=== PATIENT | male | born 1950 | race Caucasian/White ===

== ENCOUNTER 2023-05-16 08:12 | Inpatient (IN) | payer MEDICARE, OTHER, SELFPAY ==
[2023-05-16] VITALS (14 sets, daily range): BP systolic 96–154; BP diastolic 44–87; PULSE 71–109; RESP 14–22; TEMP 36.7–37.3; O2SAT 92–98; BMI 24.4
--- NOTE | 2023-05-16 09:02 | CT_ITS ---
WS: [id number] CT PELVIS WITH CONTRAST HISTORY: perirectal abscess/pilonidal cyst TECHNIQUE: Contiguous imaging is performed of the pelvis without contrast. Coronal and sagittal refor mats are reviewed. All CT scans at [facility] use at least one of these dose optimization ross hniques: automated exposure control; mA and/or kV adjustment per patient size (includes targeted exam s where dose is matched to clinical indication); or iterative reconstruction. DLP: 448.07 mGy.cm COMPARISON: None available. Contrast: Omnipaque 350 100 mL IV. Soft tissue inflammatory process centered along the perineum and the gluteal cleft. Soft tissue thick ening begins posterior to the sacrum and extends to the perineum. There is a developing but ill-defin ed collection measuring 3.2 x 3.4 cm and extending over a length of 6.0 cm along the midline perineum and gluteal cleft. There is additional induration and stranding within the soft tissues bilaterally over the gluteal muscles. No foreign body. The inflammatory changes extend to the rectum and anus. Mild atherosclerotic changes in the distal aorta. Small anterior abdominal wall hernia contains fat o nly. Urinary bladder is distended. No free fluid in the pelvis. IMPRESSION: 1. Phlegmonous changes with early formation of an abscess along the perineum and gluteal cleft measur es 3.2 x 3.4 cm and extends over a length of 6.0 cm. Adjacent soft tissue induration and thickening. 2. Phlegmonous changes extend to the posterior anorectal region.
--- NOTE | 2023-05-16 09:03 | W.ED.GENADLT ---
HPI - General Adult General: Chief complaint: GI Bleed Stated complaint: previous hemeroid treatment, complications Time Seen by Provider: 05/16/23 08:14 Source: patient Mode of arrival: ambulatory History of Present Illness: 73-year-old male presents emergency room with perineal perirectal pain. He states it began about a week ago after a difficult stool. He was seen in [place] presumably treated for hemorrhoids given suppositories and tramadol. He has noticed increased pain to the point where it nearly impossible to sit. He is also noticed difficulty with starting urination. He has noticed a little bit of blood when he wipes after bowel movement. He has noticed some swelling in the perirectal area as well. Onset (ago): hour(s) Severity: mild Relieving factors: none Exacerbating factors: none Associated symptoms: Deny chest pain, confusion, cough, diaphoresis, decreased appetite, dyspnea, fevers/chills, headache(s), malaise, nausea, rash, palpitations, seizures, short of breath, syncope, vomiting or weakness Treatments prior to arrival: none Review of Systems Const: Denies: fever(s), chills, fatigue, malaise or diaphoresis Card: Denies: chest pain, palpitations or syncope Resp: Denies: dyspnea GI: Reports: pain on defecation, rectal pain and hematochezia; Denies: abdominal pain, nausea or vomiting : Denies: flank pain, dysuria, urinary frequency or urinary urgency Skin/Breast: Reports: erythema; Denies: rash, pruritus or skin swelling Neuro: Denies: headache(s) or confusion Physical Exam Const: COMMON NORMALS: no acute distress GENERAL APPEARANCE: cooperative and comfortable ORIENTATION/CONSCIOUSNESS: Yes awake, Yes oriented to person, Yes oriented to place and Yes oriented to time HENMT: COMMON NORMALS: normocephalic, atraumatic and hearing grossly normal bilaterally HEAD & SCALP: normocephalic and atraumatic Resp: COMMON NORMALS: normal respiratory effort, No retractions, No use of accessory muscles and clear to auscultation bilaterally AUSCULTATION: clear to auscultation bilaterally Cardio: COMMON NORMALS: regular rate, regular rhythm and No murmurs present (Cardio) RATE: regular rate RHYTHM: regular rhythm GI: COMMON NORMALS: Soft to palpation and No hepatosplenomegaly present AUSCULTATION: Yes normoactive bowel sounds PALPATION: Yes Soft to palpation, No Tenderness to palpation present (GI), No Guarding due to palpation present (GI) and Yes No hepatosplenomegaly present RECTAL EXAM: Yes Visual inspection abnormal OTHER: Perirectal swelling with fluctuant area along the gluteal cleft that has some pointing no active drainage consistent with expanding perirectal abscess : COMMON NORMALS: Yes no CVA tenderness BLADDER/KIDNEY EXAM: Yes no CVA tenderness Back/Pelvis: COMMON NORMALS: no CVA tenderness Extremity: COMMON NORMALS: normal to inspection, capillary refill normal, no clubbing, cyanosis or edema, no calf tenderness and no pedal edema Neuro: SENSORIUM/ORIENTATION: Yes oriented to person, Yes oriented to place and Yes oriented to time Skin: COMMON NORMALS: no rashes or lesions noted GENERAL SKIN EXAM: no rashes or lesions noted Course Vital Signs: Vital signs: Vital Signs Temperature 98.5 F 05/19/23 12:22 Pulse Rate 84 05/19/23 12:22 Respiratory Rate 17 05/19/23 12:22 Blood Pressure 132/70 05/19/23 12:22 Pulse Oximetry 97 05/19/23 12:22 Oxygen Delivery Me thod Room Air 05/19/23 03:40 Oxygen Flow Rate 1.5 05/17/23 19:25 MDM - General Adult Medical Decision Making Perirectal abscess. Discussed Dr. Callahan antibiotics initiated cultures done Dr. Callahan is taking patient to the OR. Medical Records I reviewed the patient's medical records. Lab Data I reviewed the patient's lab results. 05/19/23 04:40 05/19/23 04:40 Laboratory Results WBC 13.52 10^3/uL (3.29-11.43) H 05/17/23 05:56 RBC 2.59 10^6/uL (3.85-5.65) L 05/17/23 05:56 Hgb 7.60 g/dL (11.27-16.99) L 05/17/23 05:56 Hct 24.8 % (37-53) L 05/17/23 05:56 MCV 95.8 fl (82-101) 05/17/23 05:56 MCH 29.3 pg (27-33) 05/17/23 05:56 MCHC 30.6 g/dL (30-55) 05/17/23 05:56 RDW 26.6 % (12.1-15.1) H 05/17/23 05:56 Plt Count 402 10^3/cmm (157-399) H 05/17/23 05:56 MPV 10.7 fL (7.4-10.4) H 05/17/23 05:56 Neut % (Auto) 85.5 % 05/17/23 05:56 Lymph % (Auto) 5.9 % 05/17/23 05:56 [place] % (Auto) 6.5 % 05/17/23 05:56 Eos % (Auto) 0.2 % 05/17/23 05:56 Baso % (Auto) 0.2 % 05/17/23 05:56 Neut # (Auto) 11.55 10^3/uL (1.8-7.7) H 05/17/23 05:56 Lymph # (Auto) 0.8 10^3/uL (0.8-4.8) 05/17/23 05:56 [place] # (Auto) 0.9 10^3/uL (0.2-0.9) 05/17/23 05:56 Eos # (Auto) 0.0 10^3/uL (0.0-0.8) 05/17/23 05:56 Baso # (Auto) 0.0 10^3/uL (0.0-0.1) 05/17/23 05:56 Nucleated RBC % (auto) 0 % 05/17/23 05:56 Nucleated RBCs # 0.0 /100WBC 05/17/23 05:56 Sodium 136 mmol/L (136-145) 05/17/23 05:56 Potassium 4.6 mmol/L (3.5-5.1) 05/17/23 05:56 Chloride 102 mmol/L (98-107) 05/17/23 05:56 Carbon Dioxide 27 mmol/L (22-29) 05/17/23 05:56 Anion Gap 11.6 (5-19) 05/17/23 05:56 BUN 13 mg/dL (8-23) 05/17/23 05:56 Creatinine 1.0 mg/dL (0.7-1.2) 05/17/23 05:56 GFR Calculation Not Reportable 05/17/23 05:56 Glucose 125 mg/dL (65-115) H 05/17/23 05:56 Calculated Osmolality 284 mOsm/kg (285-295) L 05/17/23 05:56 Calcium 8.0 mg/dL (8.5-10.5) L 05/17/23 05:56 Total Bilirubin 1.3 mg/dL (0.15-1.2) H 05/16/23 09:28 AST 14 U/L (0-40) 05/16/23 09:28 ALT 21 U/L (0-41) 05/16/23 09:28 Alkaline Phosphatase 76 U/L (40-130) 05/16/23 09:28 Total Protein 6.0 g/dL (6.6-8.7) L 05/16/23 09:28 Albumin 3.9 g/dL (3.5-5.2) 05/16/23 09:28 Globulin 2.1 g/dL (1.3-4.6) 05/16/23 09:28 Urine Color Yellow (Yellow) 05/16/23 10:09 Urine Appearance Clear (CLEAR) 05/16/23 10:09 Urine pH 8 (5-7) H 05/16/23 10:09 Ur Specific [place] 1.010 (1.005-1.030) 05/16/23 10:09 Urine Protein Neg (Negative) 05/16/23 10:09 Urine Glucose (UA) Norm (Normal) 05/16/23 10:09 Urine Ketones Negative (Negative) 05/16/23 10:09 Urine Blood Neg (Negative) 05/16/23 10:09 Urine Nitrate Negative (Negative) 05/16/23 10:09 Urine Bilirubin Neg (Negative) 05/16/23 10:09 Prot Sulfosalicylic Acd Negative (Negative) 05/16/23 10:09 Urine Urobilinogen Norm mg/dL (Negative) 05/16/23 10:09 Ur Leukocyte Esterase Negative (Negative) 05/16/23 10:09 Discharge Plan Discharge Patient Disposition: Admitted As Inpatient Admit Provider: Carson Callahan Clinical Impression: Abscess, perirectal Condition: Stable Discharge Diet: Usual diet Discharge Activity: Resume usual activity 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
[2023-05-16] MEDS: sodium chloride 0.9% 1,000 ML 999 ML IV (09:31)
[2023-05-16 09:45] LABS: Basophils % 0.1 %; Eosinophils % 0.1 %; Hematocrit 25.6 % (37-53); Lymphocytes # 0.8 10^3/uL (0.8-4.8); Lymphocytes % 5.4 %; Mean Corpuscular HGB Conc 31.3 g/dL (30-55); Mean Corpuscular Hemoglobin 30.1 pg (27-33); Mean Corpuscular Volume 96.2 fl (82-101); Mean Platelet Volume 10.9 fL (7.4-10.4); Monocytes % 6.5 %; Neutrophils # 13.47 10^3/uL (1.8-7.7); Neutrophils % 86.9 %; Nucleated Red Blood Cells % 0.1 %; Platelet Count 449 10^3/cmm (157-399); Red Blood Count 2.66 10^6/uL (3.85-5.65); Red Cell Distribution Width 26.9 % (12.1-15.1)
[2023-05-16 10:13] LABS: Add Urine Microscopic? NO; Charge for UA Resulting for Rev
[2023-05-16 10:18] LABS: Alanine Aminotransferase 21 U/L (0-41); Albumin Level 3.9 g/dL (3.5-5.2); Alkaline Phosphatase 76 U/L (40-130); Aspartate Amino Transferase 14 U/L (0-40); Blood Urea Nitrogen 10 mg/dL (8-23); Calcium 8.5 mg/dL (8.5-10.5); Carbon Dioxide 28 mmol/L (22-29); Chloride 100 mmol/L (98-107); Globulin 2.1 g/dL (1.3-4.6); Glucose 131 mg/dL (65-115); Osmolality Calculated 283 mOsm/kg (285-295); Sodium 136 mmol/L (136-145); Total Bilirubin 1.3 mg/dL (0.15-1.2)
[2023-05-16 10:34] LABS: Bilirubin Urine Neg (Negative); Blood Urine Neg (Negative); Glucose Urine UA Norm (Normal); Ketones Urine Negative (Negative); Leukocyte Esterase Urine Negative (Negative); Nitrate Urine Negative (Negative); Protein Urine Neg (Negative); Sulfosalicylic Acid Urine Negative (Negative); Urine Appearance Clear (CLEAR); Urine Color Yellow (Yellow); Urobilinogen Urine Norm (Negative); pH Urine 8 (5-7)
[2023-05-16] MEDS: iohexol 350 mg/mL 500 mL Btl (per mL) IV (11:08)
--- NOTE | 2023-05-16 12:35 | P.HP_ITS ---
Providers/Chief Complaint Admitting Physician: Dr. Callahan Chief Complaint: previous hemeroid treatment, complications History of Present Illness Moiz José is a 73 year old male who presents for evaluation of possible perirectal abscess. Per patient report he started to be feeling of fullness and pain last week, on Sunday he presented to the outside physician, he was treated for hemorrhoids, since then swelling and pain has worsened, he also has noted some redness around the perianal region. Therefore considered to present to our emergency department. In our emergency department the white count was noted to be elevated, in addition to that CT scan of the pelvis was done which show evidence of a possible perirectal abscess measuring up to 6 cm. I was asked to evaluate him for this finding. Review of Systems Narrative: 10 point review of systems done and negative otherwise noted in HPI Medications/Allergies Home Medications Medication Instructions Recorded Confirmed Last Taken Type Lactobacillus acidophilus 2,000 mmu cells PO DAILY 05/16/23 05/16/23 05/16/23 History (Acidophilus capsule) amitriptyline 10 mg tablet 10 mg PO BEDTIME 05/16/23 05/16/23 05/15/23 History cholecalciferol (vitamin D3) 50 50 mcg PO DAILY 05/16/23 05/16/23 05/16/23 History mcg (2,000 unit) capsule (Vitamin D3) fish, borage, flaxseed oils-omega 1 cap PO DAILY 05/16/23 05/16/23 05/16/23 History 3,6,9 comb no.1 1,200 mg capsule ([employer] 3-6-9) hydrocortisone acetate 25 mg 25 mg [place] BID 05/16/23 05/16/23 05/16/23 History rectal suppository (Anucort-HC) [id number] 150 mcg-vit K1 1 tab PO DAILY 05/16/23 05/16/23 05/16/23 History 30 mcg-lycop 300 mcg-lutein tablet (Centrum Men 50 Plus Minis) tamsulosin 0.4 mg capsule 0.4 mg PO DAILY 05/16/23 05/16/23 05/16/23 History tramadol 50 mg tablet 50 mg PO Q6H PRN Pain 05/16/23 05/16/23 Unknown History vitamin B complex 1 tab PO DAILY 05/16/23 05/16/23 05/16/23 History Allergies Allergy/AdvReac Type Severity Reaction Status Date / Time No Known Allergies Allergy Verified 05/16/23 08:59 Vitals/I&O/Wt Last Vital Signs Temp 98.7 F 05/16/23 08:53 Pulse 82 05/16/23 08:53 Resp 16 05/16/23 08:53 BP 134/44 05/16/23 08:53 Pulse Ox 96 05/16/23 08:53 O2 Del Method Room Air 05/16/23 08:53 Weight last 48 hrs Weight 180 lb Physical Exam Narrative: General : Patient is well developed , no acute distress, oriented x3 Head : Normal cephalic, a-traumatic. Nose : Mucous membranes are without erythema. Lungs : Equal chest rise bilaterally, no use of accessory muscles, trachea is midline. CV : Rate and rhythm are normal. Abdomen : Soft, ND, NT, no g/r/m Perirectal exam: Digital rectal exam deferred due to severe tenderness, there is induration and swelling in bilateral ischiorectal fossa's as well as the posterior deep anal space. Extremities : No edema. Upper extremities are normal bilaterally. Back : non-tender to palpation, no CVA tenderness. Data 05/16/23 09:28 05/16/23 09:28 Micro: Microbiology 05/16/23 09:35 Blood Culture - Preliminary Blood SPECIMEN COLLECTED 05/16/23 09:30 Blood Culture - Preliminary Blood SPECIMEN COLLECTED A&P Assessment and plan (1) Horseshoe abscess of ischiorectal space: Plan After complete history, physical examination and review of all available clinical data the following is my assessment. Patient is high risk for perianal sepsis, due to the history of immunosuppression and myelo dysplasia. Patient will require Examiner anesthesia and I&D of the perirectal abscess. Discussed all the risk and benefits of the procedure with the patient including the risks of bleeding, infection, damage to the rectum, incontinence, fistula creation, need for additional procedures. Patient understands the risks and wishes to proceed. Patient will be taken to the OR this afternoon, in the meantime we will start him on some antibiotics and IV fluids. Attestations Medical Necessity Statement*: Patient will require IV antibiotics for 24 to 48 hours as well as I&D of the perirectal abscess. Coding Level of Care Code [facility] Horseshoe abscess of ischiorectal space K61.31
[2023-05-16] MEDS: sodium chloride 0.9% 1,000 ML 30 ML IV (13:14)
[2023-05-16] MEDS: piperacillin-tazobactam 3.375 GM in sodium chloride 0.9% (plus) 50 ML IV ×2 (13:15→18:26)
--- NOTE | 2023-05-16 15:00 | ANES.PREANE2 ---
Pre-Anesthetic Assessment Height/Weight: Height 1.83 m Weight 81.647 kg Temp Pulse Resp BP Pulse Ox O2 Del Method 99.2 F 88 16 113/55 98 Room Air 05/16/23 13:12 05/16/23 13:12 05/16/23 13:12 05/16/23 13:12 05/16/23 13:12 05/16/23 13:12 Preop Diagnosis: Deepika-rectal abscess Operation Date: 05/16/23 12:25 Proposed Procedures p Incision And Drainage Incision And Drainage Perianal Abscess (lithotomy position)(Not Applicable) - Carson Callahan MD Familial anesthetic complications: none Was Beta [place] taken within 24 hours: N/A Was Clonidine taken within 24 hours: N/A Last intake: Intake Last Liquid Date 05/16/23 Last Liquid Time 06: Last Solid Date 05/16/23 Last Solid Time 06: Social No alcohol and No tobacco Exam alert, oriented x 3, clear to auscultation bilaterally and regular rate & rhythm Airway Mallampati: Class I Dentition: full CV/HEM Hypertension Anesthetic Plan ASA status: 2 Anesthesia: General Risk of > 500 ml blood loss (7ml/kg in children): No Medications/Allergies Home Medications Medication Instructions Recorded Confirmed Last Taken Type Lactobacillus acidophilus 2,000 mmu cells PO DAILY 05/16/23 05/16/23 05/16/23 History (Acidophilus capsule) amitriptyline 10 mg tablet 10 mg PO BEDTIME 05/16/23 05/16/23 05/15/23 History cholecalciferol (vitamin D3) 50 50 mcg PO DAILY 05/16/23 05/16/23 05/16/23 History mcg (2,000 unit) capsule (Vitamin D3) fish, borage, flaxseed oils-omega 1 cap PO DAILY 05/16/23 05/16/23 05/16/23 History 3,6,9 comb no.1 1,200 mg capsule ([employer] [place] 3-6-9) hydrocortisone acetate 25 mg 25 mg [place] BID 05/16/23 05/16/23 05/16/23 History rectal suppository (Anucort-HC) [id number] 150 mcg-vit K1 1 tab PO DAILY 05/16/23 05/16/23 05/16/23 History 30 mcg-lycop 300 mcg-lutein tablet (Centrum Men 50 Plus Minis) tamsulosin 0.4 mg capsule 0.4 mg PO DAILY 05/16/23 05/16/23 05/16/23 History tramadol 50 mg tablet 50 mg PO Q6H PRN Pain 05/16/23 05/16/23 Unknown History vitamin B complex 1 tab PO DAILY 05/16/23 05/16/23 05/16/23 History Allergies Allergy/AdvReac Type Severity Reaction Status Date / Time No Known Allergies Allergy Verified 05/16/23 08:59 Current Medications Generic Name Dose Route Start Last Admin Trade Name Freq PRN Reason Stop Dose Admin Sodium Chloride 1,000 mls @ 30 mls/hr 05/16/23 13:00 05/16/23 13:14 Sodium Chloride 0.9% IV 05/17/23 12:59 30 mls/hr .Q24H LEANNE Administration Midazolam HCl 2 mg 05/16/23 12:52 05/16/23 15:28 Midazolam 1 Mg/Ml Inj 2 Ml IVP 2 mg Q5M PRN Administration Preop Anxiety Data Anesthesia 05/16/23 09:28 05/16/23 09:28 Short CBC 05/16/23 Range/Units 09:28 WBC 15.50 H (3.29-11.43) 10^3/uL Hgb 8.00 L (11.27-16.99) g/dL Hct 25.6 L (37-53) % MCV 96.2 (82-101) fl Plt Count 449 H (157-399) 10^3/cmm Neut % (Auto) 86.9 % Neut # (Auto) 13.47 H (1.8-7.7) 10^3/uL BMP 05/16/23 09:28 Sodium 136 Potassium 4.0 Chloride 100 Carbon Dioxide 28 BUN 10 Creatinine 0.9 Glucose 131 H Calcium 8.5 Liver Function 05/16/23 Range/Units 09:28 Total Bilirubin 1.3 H (0.15-1.2) mg/dL AST 14 (0-40) U/L ALT 21 (0-41) U/L Alkaline Phosphatase 76 (40-130) U/L Albumin 3.9 (3.5-5.2) g/dL Urine 05/16/23 Range/Units 10:09 Urine Color Yellow (Yellow) Urine Appearance Clear (CLEAR) Urine pH 8 H (5-7) Ur Specific [place] 1.010 (1.005-1.030) Urine Protein Neg (Negative) Urine Glucose (UA) Norm (Normal) Urine Ketones Negative (Negative) Urine Nitrate Negative (Negative) Urine Bilirubin Neg (Negative) Ur Leukocyte Esterase Negative (Negative) Microbiology 05/16/23 09:35 Blood Culture - Preliminary Blood SPECIMEN COLLECTED 05/16/23 09:30 Blood Culture - Preliminary Blood SPECIMEN COLLECTED Cardiac Studies: No Data to Display
[2023-05-16] MEDS: midazolam 1 mg/mL INJ 2 mL 2 MG IVP (15:28)
[2023-05-16] MEDS: lidocaine-epi 1% 20 mL INJ INJECTION (16:53)
--- NOTE | 2023-05-16 17:10 | PM.OP ---
Operative Report Date of procedure: May 16, 2023 Pre-op diagnosis: Preop Diagnosis Deepika-rectal abscess Post-op diagnosis: Posterior rectal abscess Procedure done: Examined the risk anesthesia, incision and drainage of posterior rectal abscess Pathology: Wound cultures Surgeon: Carson Callahan MD Complications: None Findings: On the posterior aspect of the perineum about 1 cm from the anal margin was a draining wound, upon entering the wound a large abscess was evacuated from the deep posterior anal space, abscess appeared to be rectal in origin as evidenced by abundant purulence when pressure applied to the posterior rectal wall. No extension into ischiorectal fossa was noted. Brief History: 73-year-old male who presented to our hospital complaining of rectal pain and drainage for the last 7 days, work-up was remarkable for elevated WBC and a CAT scan that showed evidence of a posterior rectal abscess with possible phlegmonous changes of the ischiorectal fossa's bilaterally. After a complete discussion of risk and benefits we decided to proceed with I&D of posterior rectal abscess. Procedure: Patient was brought into the OR. General anesthesia was given. The patient was placed in the lithotomy position. The rectum perirectal region was prepped and draped in the usual sterile fashion. Timeout was conducted. Examination under anesthesia was done. No evidence of a draining sinus or drainage inside of the anal canal. There was multiple hemorrhoids both in the posterior columns and the anterior column. On examination of the perianal margin an area of fluctuance was noted about 1 cm posterior to the anal margin on the posterior midline, upon close inspection it was noted that this area was already draining purulent material. Local anesthesia was administered in order to provide a field block around the anus. a 2.5 centimeters incision was made at the area of fluctuance, with immediate evacuation of abundant purulent material. Wound cultures were obtained. The abscess cavity was deloculated and was noted to track all the way down to the deep posterior anal Fossa. There was minimal extension on to the left ischiorectal space, no extension of the right ischiorectal space. There was abundant purulence noted after bimanual examination with pressure in the posterior rectal wall. Which raises a concern for a possible rectal etiology and possible fistula tract. The cavity was completely deloculated, I then proceeded to do a gentle debridement with gauze. The cavity was then profusely irrigated first with Betadine mixed with saline and then with saline alone. Once no further purulence was noted and the cavity appeared to be clean, I proceeded to pack the cavity with half-inch iodoform packing. Sterile dressing was then applied and mesh underwear placed over it. The patient tolerated well the procedure, was extubated and transferred to the postanesthesia care unit in stable condition.
--- NOTE | 2023-05-16 17:30 | ANE.PACU2 ---
Inpatient post-anesthesia follow up: Airway intact: Yes Vital signs: Temperature 99.5 F Pulse Rate 89 Respiratory Rate 16 Blood Pressure 101/59 Pulse Oximetry 100 Oxygen Delivery Me thod Room Air Oxygen Flow Rate 6 Fraction of Inspir ed Oxygen Hydration adequate: Yes Nausea and vomiting: No Pain level: 1 Mental status: Baseline
[2023-05-16] MEDS: ketorolac 30 mg/mL INJ 15 MG IVP (18:47)
[2023-05-17] VITALS (7 sets, daily range): BP systolic 91–112; BP diastolic 46–63; PULSE 74–93; RESP 16–17; TEMP 36.8–38.4; O2SAT 86–100
[2023-05-17] MEDS: ketorolac 30 mg/mL INJ 15 MG IVP ×4 (00:12→17:47)
[2023-05-17] MEDS: piperacillin-tazobactam 3.375 GM in sodium chloride 0.9% (plus) 50 ML IV ×3 (04:07→18:48)
[2023-05-17 06:26] LABS: Basophils % 0.2 %; Eosinophils % 0.2 %; Hematocrit 24.8 % (37-53); Lymphocytes # 0.8 10^3/uL (0.8-4.8); Lymphocytes % 5.9 %; Mean Corpuscular HGB Conc 30.6 g/dL (30-55); Mean Corpuscular Hemoglobin 29.3 pg (27-33); Mean Corpuscular Volume 95.8 fl (82-101); Mean Platelet Volume 10.7 fL (7.4-10.4); Monocytes # 0.9 10^3/uL (0.2-0.9); Monocytes % 6.5 %; Neutrophils # 11.55 10^3/uL (1.8-7.7); Neutrophils % 85.5 %; Nucleated Red Blood Cells % 0 %; Platelet Count 402 10^3/cmm (157-399); Red Blood Count 2.59 10^6/uL (3.85-5.65); Red Cell Distribution Width 26.6 % (12.1-15.1); White Blood Count 13.52 10^3/uL (3.29-11.43)
[2023-05-17 07:11] LABS: Anion Gap 11.6 (5-19); Blood Urea Nitrogen 13 mg/dL (8-23); Carbon Dioxide 27 mmol/L (22-29); Chloride 102 mmol/L (98-107); Glucose 125 mg/dL (65-115); Osmolality Calculated 284 mOsm/kg (285-295); Potassium 4.6 mmol/L (3.5-5.1); Sodium 136 mmol/L (136-145)
[2023-05-17] MEDS: tamsulosin 0.4 mg Capsule PO (09:54)
[2023-05-17] MEDS: HYDROmorphone 1 mg/mL INJ 1 mL 0.4 MG IVP (10:02)
--- NOTE | 2023-05-17 10:55 | PC.CHAP ---
Pastoral Care Encounter/Spiritual Assessment Type of Contact [x] Declined insulation manager visit [] Patient/Family/Request visit [] Outpatient visit [] Follow-up visit [] Physician referral [] Code/Alert [x] Routine visit [] Staff referral [] Actively dying [] Patient sleeping [] Family support [] [] Out of room [] Palliative care [] [] Receiving care in room [] Pre-surgical visit [] Trauma [] Long length of stay [] ICU visit [] Other: Relational/Emotional Strength [] Patient feels connected with others/family/visitors/staff [] Distress [] Loneliness/isolation [] Abandonment Spirituality of Patient [] Person of Saige [] Attends Jain of their Saige [] Believes in Prayer [] Reads Bible or Buddhism materials [] There are Spiritual issues to be addressed Criminalist Interventions [] Prayer [] Active listening [] Non-anxious presence [] Spiritual/emotional support [] Crisis/trauma care [] Spiritual counseling [] Bereavement support [] Provided bereavement packet [] Provided Bible/devotional materials [] Provided toy/stuffed animal, coloring book to patient or family member [] Provided Communion [] Anointing/[place] [] Salvation [] Completed spiritual assessment [] Other: Impact on Illness or Injury [] Angry [] Fearful [] Anxious [] Often cries [] Exhaustion [] Unable to work [] Unable to attend amish [] Unable to walk/stand [] Unable to read [] Unable to drive [] Unable to eat/drink [] Unable to sleep [] Unable to be with family [] Patient intubated [] Other: Summary Declined insulation manager visit Time spent with patient 10 mins
[2023-05-17] MEDS: acetaminophen 325 mg Tablet 650 MG PO (12:51)
--- NOTE | 2023-05-17 13:14 | PM.PN ---
Subjective Subjective: Postoperative day 1 status post I&D of perirectal abscess. Patient doing much better, pain in the perirectal area has significantly decreased. Denies any nausea vomiting or any other symptoms. Vitals/I&O/Wt Last Vital Signs Temp 101.1 F H 05/17/23 12:02 Pulse 93 05/17/23 12:02 Resp 17 05/17/23 12:02 BP 99/53 05/17/23 12:02 Pulse Ox 86 L 05/17/23 12:02 O2 Del Method Room Air 05/17/23 12:02 O2 Flow Rate 6 05/16/23 17:20 05/16/23 05/17/23 05/17/23 22:59 06:59 14:59 Intake Total 1500 / 1500 770 / 770 Output Total 505 / 505 350 / 855 Balance 995 / 995 -350 / 645 770 / 770 Weight last 48 hrs Weight 180 lb Physical Exam GI: OTHER: On rectal examination there is a wound on the midline posterior to the anus, the wound is back, packing was removed, there is evidence of minimal amount of purulence coming from the rectal area, the wound base itself looks clear. The wound was cleaned at the bedside and repacked. Data 05/17/23 05:56 05/17/23 05:56 Micro: Microbiology 05/16/23 09:35 Blood Culture - Preliminary Blood NEGATIVE TO DATE 05/16/23 09:30 Blood Culture - Preliminary Blood NEGATIVE TO DATE A&P Assessment and plan (1) Horseshoe abscess of ischiorectal space: Plan Postoperative day 1 status post I&D of perirectal abscess. Abscess was noted to track deep into the posterior anal space. Abscess was evacuated and cavity was packed. There was also evidence of purulence coming from the rectal area. From the tissue, no specific abscess cavity. Wound care has been done at the bedside, patient is on IV antibiotics, white count has improved from 15 to 13. We will continue monitoring the white count, will do daily wound care. We will continue antibiotic therapy. Attestations Medical Necessity Statement*: Patient with perineal sepsis, perirectal abscess will require continuation of care with IV antibiotics and wound care probably 48 hours of hospital stay. Coding Level of Care Code Acute Code for [facility] Diagnoses Horseshoe abscess of ischiorectal space K61.31
[2023-05-17] MEDS: heparin 5,000 unit/mL INJ 1 mL 5000 UNIT SUBCUT (14:27)
[2023-05-17] MEDS: sulfamethoxazole-trimeth DS 160-800 mg Tablet 1 TAB PO (17:47)
[2023-05-18] MEDS: ketorolac 30 mg/mL INJ 15 MG IVP ×4 (00:13→17:51)
[2023-05-18] MEDS: piperacillin-tazobactam 3.375 GM in sodium chloride 0.9% (plus) 50 ML IV ×3 (02:50→18:41)
[2023-05-18] MEDS: heparin 5,000 unit/mL INJ 1 mL 5000 UNIT SUBCUT ×2 (02:52→14:17)
[2023-05-18 04:00] VITALS: BP 96/59; PULSE 73; RESP 15; TEMP 36.9; O2SAT 96
[2023-05-18 05:33] LABS: Basophils % 0.2 %; Eosinophils # 0.3 10^3/uL (0.0-0.8); Eosinophils % 2.5 %; Hematocrit 24.6 % (37-53); Lymphocytes # 1.1 10^3/uL (0.8-4.8); Lymphocytes % 9.9 %; Mean Corpuscular HGB Conc 30.5 g/dL (30-55); Mean Corpuscular Hemoglobin 29.2 pg (27-33); Mean Corpuscular Volume 95.7 fl (82-101); Mean Platelet Volume 10.2 fL (7.4-10.4); Monocytes # 0.8 10^3/uL (0.2-0.9); Monocytes % 7.2 %; Neutrophils # 8.37 10^3/uL (1.8-7.7); Neutrophils % 78.6 %; Nucleated Red Blood Cells % 0 %; Platelet Count 348 10^3/cmm (157-399); Red Blood Count 2.57 10^6/uL (3.85-5.65); Red Cell Distribution Width 26.5 % (12.1-15.1); White Blood Count 10.65 10^3/uL (3.29-11.43)
[2023-05-18 06:00] LABS: Anion Gap 11.6 (5-19); Blood Urea Nitrogen 16 mg/dL (8-23); Carbon Dioxide 27 mmol/L (22-29); Chloride 104 mmol/L (98-107); Glucose 104 mg/dL (65-115); Osmolality Calculated 287 mOsm/kg (285-295); Potassium 4.6 mmol/L (3.5-5.1); Sodium 138 mmol/L (136-145)
[2023-05-18 07:28] VITALS: RESP 16
[2023-05-18] MEDS: HYDROmorphone 1 mg/mL INJ 1 mL 0.4 MG IVP (07:28)
[2023-05-18 08:02] VITALS: BP 136/71; PULSE 87; RESP 18; TEMP 36.8; O2SAT 95
--- NOTE | 2023-05-18 08:04 | PM.PN ---
Subjective Subjective: Patient doing well, pain has significantly improved. He has been able to ambulate, he is also able to lay down on the buttocks. Has not had a bowel movement yet. He is passing gas. Vitals/I&O/Wt Last Vital Signs Temp 98.2 F 05/18/23 08:02 Pulse 87 05/18/23 08:02 Resp 18 05/18/23 08:02 BP 136/71 05/18/23 08:02 Pulse Ox 95 05/18/23 08:02 O2 Del Method Room Air 05/18/23 08:02 O2 Flow Rate 1.5 05/17/23 19:25 05/17/23 05/18/23 05/18/23 22:59 06:59 14:59 Intake Total 530 / 1300 50 / 1350 50 / 50 Output Total 1200 / 1200 Balance -670 / 100 50 / 150 50 / 50 Weight last 48 hrs Weight 180 lb Physical Exam Narrative: General : Patient is well developed , no acute distress, oriented x3 Head : Normal cephalic, a-traumatic. Nose : Mucous membranes are without erythema. Lungs : Equal chest rise bilaterally, no use of accessory muscles, trachea is midline. CV : Rate and rhythm are normal. Abdomen : Soft, ND, NT, no g/r/m Perirectal exam: On the posterior anal margin about 1 cm from the anal verge there is a surgical incision measuring about 1.5 cm, the incision was packed, packing was removed wound base appeared clear there is minimal induration on the left perianal margin, from this area there is minimal amount of purulence noted, no evidence of further abscess formation. Wound was repacked. Extremities : No edema. Upper extremities are normal bilaterally. Back : non-tender to palpation, no CVA tenderness. Data 05/18/23 05:18 05/18/23 05:18 Micro: Microbiology 05/16/23 16:34 Anaerobic Culture - Preliminary Other Source 05/16/23 16:34 Gram Stain - Final Other Source Wound Culture - Preliminary Coag positive Staphylococcus 05/16/23 09:35 Blood Culture - Preliminary Blood NEGATIVE TO DATE 05/16/23 09:30 Blood Culture - Preliminary Blood NEGATIVE TO DATE A&P Assessment and plan (1) Horseshoe abscess of ischiorectal space: Plan This is a 73-year-old male who is postoperative day 2 status post I&D of deep placental abscess. Patient is doing well, has not had a bowel movement yet. Wound is healing fine. In addition white count is now normal internal from 15-13 out of 10. His pain is well controlled. He is ambulating. I Explained to the patient that we will continue with 24 more hours of IV antibiotics, after that he will be discharged home with local wound care instructions. I have also started the aggressive bowel regimen as both patient and I will prefer him to have a bowel movement before he leaves the hospital. Attestations Medical Necessity Statement*: Patient will require 24-hour more of hospital stay, for IV antibiotics and to ensure he is not having bowel movements before discharge. Coding Level of Care Code Acute Code for [facility] Diagnoses Horseshoe abscess of ischiorectal space K61.31
[2023-05-18] MEDS: pantoprazole DR 40 mg Tablet PO (09:11)
[2023-05-18] MEDS: docusate sodium 100 mg Capsule PO ×2 (09:11→17:50)
[2023-05-18] MEDS: sulfamethoxazole-trimeth DS 160-800 mg Tablet 1 TAB PO ×2 (09:11→17:50)
[2023-05-18] MEDS: polyethylene glycol 3350 Pkt 17 gm PO (09:11)
[2023-05-18] MEDS: tamsulosin 0.4 mg Capsule PO (09:11)
[2023-05-18 11:24] VITALS: BP 105/61; PULSE 82; RESP 17; TEMP 36.7; O2SAT 96
[2023-05-18 15:53] VITALS: BP 123/67; PULSE 90; RESP 17; TEMP 36.9; O2SAT 97
[2023-05-18 20:00] VITALS: BP 106/59; PULSE 88; RESP 17; TEMP 36.7; O2SAT 95
[2023-05-18] MEDS: magnesium hydroxide 30 mL UDC PO (22:03)
[2023-05-18] MEDS: sennosides 8.6 mg Tablet PO (22:03)
[2023-05-19] MEDS: vancomycin 1,500 MG/300 ML PIGGYBACK 200 MG IV (02:19)
[2023-05-19] MEDS: heparin 5,000 unit/mL INJ 1 mL 5000 UNIT SUBCUT (02:20)
[2023-05-19] MEDS: ketorolac 30 mg/mL INJ 15 MG IVP ×2 (02:21→09:12)
[2023-05-19 03:40] VITALS: BP 101/57; PULSE 72; RESP 16; TEMP 36.8; O2SAT 94
[2023-05-19] MEDS: piperacillin-tazobactam 3.375 GM in sodium chloride 0.9% (plus) 50 ML IV (04:21)
[2023-05-19 05:24] LABS: Basophils % 0.2 %; Eosinophils # 0.5 10^3/uL (0.0-0.8); Eosinophils % 6.3 %; Hematocrit 23.1 % (37-53); Lymphocytes # 0.8 10^3/uL (0.8-4.8); Lymphocytes % 9.5 %; Mean Corpuscular HGB Conc 30.3 g/dL (30-55); Mean Corpuscular Volume 95.9 fl (82-101); Mean Platelet Volume 10.2 fL (7.4-10.4); Monocytes # 0.8 10^3/uL (0.2-0.9); Monocytes % 9.2 %; Neutrophils # 6.22 10^3/uL (1.8-7.7); Neutrophils % 73.2 %; Nucleated Red Blood Cells % 0 %; Platelet Count 347 10^3/cmm (157-399); Red Blood Count 2.41 10^6/uL (3.85-5.65); Red Cell Distribution Width 26.2 % (12.1-15.1); White Blood Count 8.51 10^3/uL (3.29-11.43)
[2023-05-19 05:59] LABS: Anion Gap 10.3 (5-19); Blood Urea Nitrogen 12 mg/dL (8-23); Calcium 7.8 mg/dL (8.5-10.5); Carbon Dioxide 26 mmol/L (22-29); Chloride 105 mmol/L (98-107); Creatinine Clr Calc Pharmacy 69.0164; Glucose 107 mg/dL (65-115); Osmolality Calculated 284 mOsm/kg (285-295); Potassium 4.3 mmol/L (3.5-5.1); Sodium 137 mmol/L (136-145)
[2023-05-19 07:01] VITALS: RESP 16
[2023-05-19] MEDS: HYDROmorphone 1 mg/mL INJ 1 mL 0.4 MG IVP (07:01)
--- NOTE | 2023-05-19 07:31 | PM.DCS ---
Discharge Providers Date of Admission: 05/17/23 13:32 Date of Discharge: May 19, 2023 Attending Provider at Admission: Carson Callahna MD Attending Provider at Discharge: Carson Callahan MD Diagnoses at Discharge Discharge Diagnosis (1) Horseshoe abscess of ischiorectal space: Status: Acute Reason for Visit Reason for Visit: previous hemeroid treatment, complications Hospital Course Hospital Course 73-year-old male who presented with the perirectal abscess. Patient had symptoms for about a week before coming to the hospital, he initially seek care at an outpatient clinic, at the beginning it was thought to be hemorrhoids and therefore treatment for those were given. Over the days of swelling and drainage became worse and therefore he presented to our emergency department. On presentation his white count was elevated to the level of 15, he also had a CAT scan show evidence of a posterior rectal abscess and phlegmonous changes in bilateral ischiorectal fossa's. He was taken to the OR for incision and drainage, I did an incision and drainage of the perirectal abscess which show extension of the abscess to the deep postanal space. Patient was admitted for IV antibiotics and wound care. By hospital day 2 the surgical incision was noted to have minimal drainage, there was no evidence of recurrent abscess, susceptibilities were obtained and was noted to be MRSA and therefore antibiotic therapy with Bactrim was started. By hospital day 3 patient was ambulating, having bowel movements, wound appears clean, no evidence of purulence at the base, no induration around the anal margin and patient was ready for discharge. He will continue daily wound care either at home or at the urgent care while he travels to his final destination. Warning signs were given. Physical Exam : OTHER: On the posterior aspect of the perineum about 1 cm from the anal margin there was a surgical incision, the surgical incision has a clean base, minimal fibrinous discharge. No purulence noted during this evaluation. Discharge Data Studies Completed and Pending Completed Studies During Hospitalization Category Date Time Status CT pelvis w con* [id number] Stat Cat Scan 05/16/23 09:02 Completed Pending at discharge Category Date Time Status Anaerobic Culture Routine Lab 05/16/23 16:34 Results Blood Culture Stat Lab 05/16/23 09:35 Results Laboratory Results WBC 8.51 10^3/uL (3.29-11.43) 05/19/23 04:40 RBC 2.41 10^6/uL (3.85-5.65) L 05/19/23 04:40 Hgb 7.00 g/dL (11.27-16.99) L 05/19/23 04:40 Hct 23.1 % (37-53) L 05/19/23 04:40 MCV 95.9 fl (82-101) 05/19/23 04:40 MCH 29.0 pg (27-33) 05/19/23 04:40 MCHC 30.3 g/dL (30-55) 05/19/23 04:40 RDW 26.2 % (12.1-15.1) H 05/19/23 04:40 Plt Count 347 10^3/cmm (157-399) 05/19/23 04:40 MPV 10.2 fL (7.4-10.4) 05/19/23 04:40 Neut % (Auto) 73.2 % 05/19/23 04:40 Lymph % (Auto) 9.5 % 05/19/23 04:40 [place] % (Auto) 9.2 % 05/19/23 04:40 Eos % (Auto) 6.3 % 05/19/23 04:40 Baso % (Auto) 0.2 % 05/19/23 04:40 Neut # (Auto) 6.22 10^3/uL (1.8-7.7) 05/19/23 04:40 Lymph # (Auto) 0.8 10^3/uL (0.8-4.8) 05/19/23 04:40 [place] # (Auto) 0.8 10^3/uL (0.2-0.9) 05/19/23 04:40 Eos # (Auto) 0.5 10^3/uL (0.0-0.8) 05/19/23 04:40 Baso # (Auto) 0.0 10^3/uL (0.0-0.1) 05/19/23 04:40 Nucleated RBC % (auto) 0 % 05/19/23 04:40 Nucleated RBCs # 0.0 /100WBC 05/19/23 04:40 Sodium 137 mmol/L (136-145) 05/19/23 04:40 Potassium 4.3 mmol/L (3.5-5.1) 05/19/23 04:40 Chloride 105 mmol/L (98-107) 05/19/23 04:40 Carbon Dioxide 26 mmol/L (22-29) 05/19/23 04:40 Anion Gap 10.3 (5-19) 05/19/23 04:40 BUN 12 mg/dL (8-23) 05/19/23 04:40 Creatinine 1.1 mg/dL (0.7-1.2) 05/19/23 04:40 GFR Calculation Not Reportable 05/19/23 04:40 Glucose 107 mg/dL (65-115) 05/19/23 04:40 Calculated Osmolality 284 mOsm/kg (285-295) L 05/19/23 04:40 Calcium 7.8 mg/dL (8.5-10.5) L 05/19/23 04:40 Total Bilirubin 1.3 mg/dL (0.15-1.2) H 05/16/23 09:28 AST 14 U/L (0-40) 05/16/23 09:28 ALT 21 U/L (0-41) 05/16/23 09:28 Alkaline Phosphatase 76 U/L (40-130) 05/16/23 09:28 Total Protein 6.0 g/dL (6.6-8.7) L 05/16/23 09:28 Albumin 3.9 g/dL (3.5-5.2) 05/16/23 09:28 Globulin 2.1 g/dL (1.3-4.6) 05/16/23 09:28 Urine Color Yellow (Yellow) 05/16/23 10:09 Urine Appearance Clear (CLEAR) 05/16/23 10:09 Urine pH 8 (5-7) H 05/16/23 10:09 Ur Specific [place] 1.010 (1.005-1.030) 05/16/23 10:09 Urine Protein Neg (Negative) 05/16/23 10:09 Urine Glucose (UA) Norm (Normal) 05/16/23 10:09 Urine Ketones Negative (Negative) 05/16/23 10:09 Urine Blood Neg (Negative) 05/16/23 10:09 Urine Nitrate Negative (Negative) 05/16/23 10:09 Urine Bilirubin Neg (Negative) 05/16/23 10:09 Prot Sulfosalicylic Acd Negative (Negative) 05/16/23 10:09 Urine Urobilinogen Norm mg/dL (Negative) 05/16/23 10:09 Ur Leukocyte Esterase Negative (Negative) 05/16/23 10:09 Vitals Last Vital Signs Temp 98.2 F 05/19/23 03:40 Pulse 72 05/19/23 03:40 Resp 16 05/19/23 07:01 BP 101/57 05/19/23 03:40 Pulse Ox 94 05/19/23 03:40 O2 Del Method Room Air 05/19/23 03:40 O2 Flow Rate 1.5 05/17/23 19:25 Discharge Plan Discharge Patient Disposition: Home Condition: Stable Prescriptions: New amoxicillin-pot clavulanate 875-125 mg tablet 1 tab PO BID Qty: 14 0RF Bactrim DS 800-160 mg tablet 1 tab PO BID 7 Days Qty: 14 0RF docusate sodium 100 mg capsule 100 mg PO BID Qty: 14 0RF senna 8.6 mg capsule 8.6 mg PO DAILY Qty: 7 0RF meloxicam 7.5 mg tablet 7.5 mg PO DAILY Qty: 7 0RF Continued tramadol 50 mg tablet 50 mg PO Q6H PRN (Reason: Pain) tamsulosin 0.4 mg capsule 0.4 mg PO DAILY amitriptyline 10 mg tablet 10 mg PO BEDTIME vitamin B complex Tablet 1 tab PO DAILY Acidophilus Capsule 2,000 mmu cells PO DAILY Vitamin D3 50 mcg (2,000 unit) Capsule 50 mcg PO DAILY Sawyer 3-6-9 1,200 mg Capsule 1 cap PO DAILY Centrum Minis Men 50 Plus [id number] mcg Tablet 1 tab PO DAILY Discontinued hydrocortisone acetate [Anucort-HC] 25 mg suppository 25 mg OH BID Discharge Orders: Discharge Order (Routine); Ordered 05/19/23 Ordered By: Carson Callahan Referrals: Carson Callahan MD [Physician] - (2 weeks) Discharge Diet: Usual diet Discharge Activity: Resume usual activity Patient Instructions: Opioid Safety Activity Restrictions/Additional Instructions: Continue daily packing of the wound, packing can be done at home or urgent care clinic. Please follow-up with a general surgeon as soon as you arrive to your final destination, please follow-up with your heme-onc doctor. Please return to the hospital if you develop fever chills, persistent discharge that is not improving, swelling or pain in the perirectal area. Assessment: You were treated for a perirectal abscess extending to the deep post anal space, the bacteria caused your abscess was MRSA, your antibiotic treatment is adjusted following the subset debilities of the bacteria. Please continue your antibiotics even if you are feeling well. Discharge Attestations Time Spent in Discharge Care*: greater than 30 min Quality Metrics Clinical Quality Measures [ No reported AMI, CVA or VTE this stay] Coding Level of Care Code Acute Code for [facility] Diagnoses Horseshoe abscess of ischiorectal space K61.31
[2023-05-19] MEDS: sulfamethoxazole-trimeth DS 160-800 mg Tablet 1 TAB PO (08:16)
[2023-05-19] MEDS: tamsulosin 0.4 mg Capsule PO (08:17)
[2023-05-19] MEDS: pantoprazole DR 40 mg Tablet PO (08:17)
[2023-05-19 08:21] VITALS: BP 132/70; PULSE 84; RESP 17; TEMP 36.9; O2SAT 97
[2023-05-19] MEDS: docusate sodium 100 mg Capsule PO (10:40)
[2023-05-19 12:22] VITALS: BP 132/70; PULSE 84; RESP 17; TEMP 36.9; O2SAT 97
== END 2023-05-19 12:00 | disposition home or self-care (01) | DRG 346 ==
LOC: ER 12:27 → OR 12:45 → MEDSURG 17:10
PROVIDERS: Admitting Provider Surgery; Emergency Provider Family Medicine; Visit Provider Surgery
PROC: 0D9P0ZZ Drainage of Rectum, Open Approach (ICD-10-PCS; principal; 2023-05-16 12:15)
DX: K61.31 Horseshoe abscess (principal); Z22.322 Carrier or suspected carrier of Methicillin resistant Staphylococcus aureus; Z79.891 Long term (current) use of opiate analgesic; K64.9 Unspecified hemorrhoids
CPT/HCPCS: 36415; 72193; 80048; 80053; 81003; 85025; 87040; 87070; 87075; 87186; 87205; 96365; 96372; 99285; G0378; J1170; J1644; J1885; J2250; J2543; J2704; J3010; J3370; J7030; Q9967